=== PATIENT | male | born 1985 | race Caucasian/White ===

== ENCOUNTER 2022-09-17 13:13 | Outpatient (REF) | payer OTHER, SELFPAY ==
[2022-09-17 14:18] LABS: Hematocrit 48.5 % (42.0-52.0); Hemoglobin 15.7 g/dl (14.0-18.0); Mean Corpuscular HGB Conc 32.4 g/dl (31.0-36.0); Mean Corpuscular Hemoglobin 29.2 pg (27.0-33.0); Mean Corpuscular Volume 90.3 fL (80.0-98.0); Mean Platelet Volume 9.3 fL (9.4-12.4); Platelet Count 334 X10*3/uL (160-400); Red Blood Count 5.37 X10*6/uL (4.60-5.80); Red Cell Distribution Width 13.2 % (11.0-16.0); White Blood Count 9.4 X10*3/uL (4.8-10.8)
[2022-09-17 14:59] LABS: Alanine Aminotransferase 36 U/L (0-40); Albumin Level 4.3 g/dL (3.5-5.0); Alkaline Phosphatase 76 U/L (39-117); Anion Gap 13 (12-20); Aspartate Amino Transferase 23 U/L (5-37); Bilirubin Total 0.7 mg/dL (0.0-1.0); Blood Urea Nitrogen 11 mg/dL (9-16); Calcium 9.6 mg/dL (8.4-10.2); Carbon Dioxide 28 mmol/L (22-29); Chloride 107 mmol/L (96-108); Cholesterol 154 mg/dL; Estimated Glomerular Filt Rate > 60; Glucose Fasting 98 mg/dL (60-99); HDL Cholesterol 58 mg/dL; LDL Cholesterol Calculated 84 mg/dl; Potassium 5.8 mmol/L (3.3-5.1); Sodium 142 mmol/L (135-145); Total Protein 6.6 g/dL (6.5-8.0); Triglycerides 62 mg/dL; Vitamin D 25-OH Total 13.7 ng/mL (>30)
[2022-09-17 15:12] LABS: Folate 9.1 ng/mL (> or = 4.0); Vitamin B12 524 pg/mL (200-900)
== END 2022-09-17 13:14 | disposition home or self-care (01) ==
LOC: HO.LAB 13:13
PROVIDERS: PCP Internal Medicine; Visit Provider Nurse Practitioner Family
DX: Z00.00 Encounter for general adult medical examination without abnormal findings (principal)
CPT/HCPCS: 36415; 80053; 80061; 82306; 82607; 82746; 84443; 85027

== ENCOUNTER → 2022-11-19 10:29 | Outpatient (BNVA) | payer OTHER, SELFPAY | PROVIDERS: PCP Internal Medicine; Visit Provider Surgery Vascular Surgery | DX: I83.12 Varicose veins of left lower extremity with inflammation (principal) ==

== ENCOUNTER 2022-12-25 08:13 | Outpatient (REF) | payer OTHER, SELFPAY ==
--- NOTE | ~2022-12-25 | US_ITS ---
EXAMINATION: US LOWER EXTREMITY VENOUS (REFLUX EXAM), BILATERAL CLINICAL INDICATION: Varicose veins of the left lower extremity COMPARISON: None. TECHNIQUE: Color flow triplex imaging and compression Doppler was performed to evaluate both the deep and the superficial systems bilaterally. To evaluate the superficial system, the examination was performed in the upright position. Color-flow Doppler ultrasound and compression ultrasound were utilized. In addition, maneuvers were utilized to demonstrate reflux. FINDINGS: RIGHT: 1. DEEP VENOUS ULTRASOUND OF THE RIGHT LOWER EXTREMITY: Common Femoral Vein: Compressible, normal respiratory variation and augmented flow. Popliteal Vein: Compressible, normal augmentation. Deep Venous Reflux: There is no evidence of reflux in the deep system in either the common femoral vein or the popliteal vein. There is no evidence of a Cali's cyst. 2. SUPERFICIAL ULTRASOUND WITH DOPPLER OF RIGHT LOWER EXTREMITY: RIGHT GREAT SAPHENOUS VEIN: Saphenofemoral Junction: 0.7 mm. No reflux. Proximal Thigh: 0.5 mm. No reflux. Mid Thigh: 0.4 mm. No reflux. Above Knee: 0.4 mm. No reflux. Below Knee: 0.3 mm. No reflux. Mid Calf: 0.3 mm. No reflux. Ankle: 0.3 mm. No reflux. DUPLICATED GREAT SAPHENOUS VEIN: Present Saphenofemoral junction: 0.2 mm. No reflux Mid thigh: 0.1 mm. No reflux RIGHT SMALL SAPHENOUS VEIN: Proximal: 0.5 mm. No reflux. Distal: 0.3 mm. No reflux. PERFORATORS: Present, measuring 0.3 cm. LEFT: 1. DEEP VENOUS ULTRASOUND OF THE LEFT LOWER EXTREMITY: Common Femoral Vein: Compressible, normal respiratory variation and augmented flow. Popliteal Vein: Compressible, normal augmentation. Deep Venous Reflux: There is no evidence of reflux in the deep system in either the common femoral vein or the popliteal vein. There is no evidence of a Cali's cyst. 2. SUPERFICIAL ULTRASOUND WITH DOPPLER OF LEFT LOWER EXTREMITY: LEFT GREAT SAPHENOUS VEIN: Saphenofemoral Junction: 0.9 mm. No reflux. Proximal Thigh: 0.8 mm. No reflux. Mid Thigh: 0.6 mm. 2912 ms reflux. Above Knee: 0.6 mm. 2428 ms reflux. Below Knee: 0.6 mm. 3152 ms reflux. Mid Calf: 0.3 mm. No reflux. Ankle: 0.3 mm. No reflux. DUPLICATED GREAT SAPHENOUS VEIN: None LEFT SMALL SAPHENOUS VEIN: Proximal: 0.3 mm. No reflux. Distal: 0.3 mm. No reflux. PERFORATORS: Present, measuring 0.3 cm. US/US venous duplex LE BI IMPRESSION: Right: No superficial right lower extremity varicose veins or prolonged reflux. Left: Prolonged superficial venous reflux (greater than 500 ms) within the great saphenous vein beginning from the mid thigh to below knee, associated with prolonged reflux within the mid femoral vein (greater than 1000 ms). No deep vein thrombosis within bilateral lower extremities Abnormal lower extremity venous reflux times: Superficial and deep calf veins: >500 ms Femoropopliteal veins: >1000 ms Perforating veins: >350 ms Dany N, Geovanny J, Bradley L, Benitez AK, Braxton SS, Hilario Mora M, Karely WH. Definition of venous reflux in lower-extremity veins.J Vasc Surg. 2003; [id number].
== END 2022-12-25 08:14 | disposition home or self-care (01) ==
LOC: HO.US 08:13
PROVIDERS: Visit Provider Surgery Vascular Surgery
DX: I83.893 Varicose veins of bilateral lower extremities with other complications (principal)
CPT/HCPCS: 93970

== ENCOUNTER → 2023-01-28 08:56 | Outpatient (BNVA) | payer OTHER, SELFPAY | PROVIDERS: PCP Internal Medicine; Visit Provider Surgery Vascular Surgery ==